=== PATIENT | female | born 1940 | race Caucasian/White ===

== ENCOUNTER 2017-12-04 08:02 | Emergency (ER) | payer OTHER, BC ==
[2017-12-04 08:17] VITALS: RESP 16
--- NOTE | 2017-12-04 09:15 | EDPHY ---
H & P Stated Complaint: R foot pain Time Seen by Provider: 12/04/17 08:57 HPI/ROS: CHIEF COMPLAINT: Atraumatic right foot and ankle pain HISTORY OF PRESENT ILLNESS: 77-year-old female generally healthy complaining of atraumatic right foot and ankle pain for the past 1 year. It is progressive. She has reproducible pain with palpation and weight-bearing. This morning she had a friend bring her to the ER and he had to assist her with her antalgic gait. She notes that the pain is reproducible with light/ superficial touch and she notes soft tissue swelling to the right calf and right ankle. No discoloration. No fever or chills. No flu-like symptoms. No coagulopathic disorder. PRIMARY CARE PROVIDER: Dr.Jillian Vee REVIEW OF SYSTEMS: A ten point review of systems was performed and is negative with the exception of the items mentioned in the HPI PAST MEDICAL & SURGICAL HISTORY: No pertinent medical or surgical history SOCIAL HISTORY: Nonsmoker. Professor Doris wallace [facility] PHYSICAL EXAM (Prior to examination, patient consented to physical exam, hands were washed and my usual and customary physical exam procedures followed) 1) GENERAL: Well-developed, well-nourished, alert and oriented. Appears to be in no acute distress. 2) HEAD: Normocephalic, atraumatic 3) HEENT: Pupils equal, round, reactive to light bilaterally. Sclera anicteric. 4) NECK: Full range of motion, no meningeal signs. 5) LUNGS: Clear auscultation bilaterally, no wheezes, no rhonchi, no retractions. 6) HEART: Regular rate and rhythm, no murmur, no heave, no gallop. 7) ABDOMEN: No guarding, no rebound, no focal tenderness, 8) MUSCULOSKELETAL: Right lower extremity: Tender to palpation right calf with no visible or palpable abnormality beyond pain. Soft compartments. Edema to the ankle no tenderness. No deformity. Normal color normal temperature to the ankle. No pain with axial loading. Foot has mild tenderness in the mid dorsal foot with normal coloration normal temperature. No crepitus. 9) BACK: No visual or palpable abnormality. 10) SKIN: No rash, no petechiae. 11) Psychiatric: Patient is oriented X 3, there is no agitation. DIFFERENTIAL DIAGNOSIS: In no particular order including but not limited to fracture, sprain, gouty arthritis, strain, DVT, arterial occlusion, septic arthritis, cellulitis, necrotizing fasciitis - Personal History Current Tetanus/Diphtheria Vaccine: No Current Tetanus Diphtheria and Acellular Pertussis (TDAP): No - Medical/Surgical History Hx Asthma: Yes Hx Chronic Respiratory Disease: No Hx Diabetes: No Hx Cardiac Disease: No Hx Renal Disease: No Hx Cirrhosis: No Hx Alcoholism: No Hx HIV/AIDS: No Hx Splenectomy or Spleen Trauma: No Other PMH: asthma, HTN, hypothyroid, thyroid ablation - Social History Smoking Status: Never smoked Constitutional: Initial Vital Signs Temperature (C) 36.6 C 12/04/17 08:13 Heart Rate 83 12/04/17 08:13 Respiratory Rate 16 12/04/17 08:13 Blood Pressure 130/71 H 12/04/17 08:13 O2 Sat (%) 95 12/04/17 08:13 O2 Delivery Mode Room Air Allergies/Adverse Reactions: No Known Allergies Allergy (Unverified 12/04/17 08:12) Home Medications: Medication Instructions Recorded Albuterol 12/04/17 Levothyroxine 12/04/17 Librax (*) 12/04/17 Lipitor 12/04/17 Medical Decision Making - Diagnostics Imaging Results: Imaging Impressions Ankle X-Ray 12/04/17 09:12 Impression: 1. No fracture or bone lesion. 2. Minimal degenerative arthropathy and chondrocalcinosis. 3. Diffuse soft tissue swelling. Findings discussed with Emergency Department physicianThelma on 2017. Extremity Venous Study 12/04/17 09:12 Impression: Negative. No deep venous thrombosis. Findings discussed with Emergency Department physicianThelma at 2017 10:05 a.m. Foot X-Ray 12/04/17 09:12 Impression: 1. No acute fracture. 2. Dislocated second metatarsophalangeal joint (possibly chronic). 3. Hallux valgus deformity and moderate osteoarthritis of the first metatarsophalangeal joint. Findings discussed with Emergency Department physicianSara on . Images reviewed myself ED Course/Re-evaluation: 9:15 a.m.: Plan will be imaging and diagnostic studies. Care of patient under supervision of secondary supervising physician Dr Lewis . 11:00 a.m.: The patient was re-evaluated with serial examinations. Discussed her imaging results showing negative DVT, no fracture on x-ray however she is noted to have a dislocation at the 2nd MTP. I discussed this with her she notes that this is more than likely been present for several years. Will not attempt reduction at this time. Did recommend follow up with Podiatry. She has no evidence of DVT on ultrasound. Doubt arterial occlusion as she has normal coloration normal temperature. Doubt septic arthritis. The specific etiology of her symptoms is not completely clear at this time. Did stress the importance of follow-up with Podiatry and her primary care provider. She feels comfortable being discharged. Recommend elevation. Usual and customary discharge precautions and instructions provided. - Data Points Laboratory Results: Laboratory Results 12/04/17 08:32 12/04/17 08:32 12/04/17 12/04/17 08:32 08:32 WBC 7.29 10^3/uL 10^3/uL (3.80-9.50) RBC 4.76 10^6/uL 10^6/uL (4.18-5.33) Hgb 14.4 g/dL g/dL (12.6-16.3) Hct 43.2 % % (38.0-47.0) MCV 90.8 fL fL (81.5-99.8) MCH 30.3 pg pg (27.9-34.1) MCHC 33.3 g/dL g/dL (32.4-36.7) RDW 13.0 % % (11.5-15.2) Plt Count 238 10^3/uL 10^3/uL (150-400) MPV 9.0 fL fL (8.7-11.7) Neut % (Auto) 77.4 % H % (39.3-74.2) Lymph % (Auto) 14.0 % L % (15.0-45.0) Charlton % (Auto) 6.6 % % (4.5-13.0) Eos % (Auto) 1.6 % % (0.6-7.6) Baso % (Auto) 0.1 % L % (0.3-1.7) Nucleat RBC Rel Count 0.0 % % (0.0-0.2) Absolute Neuts (auto) 5.64 10^3/uL 10^3/uL (1.70-6.50) Absolute Lymphs (auto) 1.02 10^3/uL 10^3/uL (1.00-3.00) Absolute Monos (auto) 0.48 10^3/uL 10^3/uL (0.30-0.80) Absolute Eos (auto) 0.12 10^3/uL 10^3/uL (0.03-0.40) Absolute Basos (auto) 0.01 10^3/uL L 10^3/uL (0.02-0.10) Absolute Nucleated RBC 0.00 10^3/uL 10^3/uL (0-0.01) Immature Gran % 0.3 % % (0.0-1.1) Immature Gran # 0.02 10^3/uL 10^3/uL (0.00-0.10) Sodium 145 mEq/L mEq/L (135-145) Potassium 4.1 mEq/L mEq/L (3.5-5.2) Chloride 109 mEq/L mEq/L (97-110) Carbon Dioxide 23 mEq/l mEq/l (22-31) Anion Gap 13 mEq/L mEq/L (8-16) BUN 10 mg/dL mg/dL (7-23) Creatinine 0.7 mg/dL mg/dL (0.6-1.0) Estimated GFR > 60 Glucose 111 mg/dL H mg/dL (70-100) Uric Acid 2.5 mg/dL mg/dL (2.5-6.8) Calcium 9.2 mg/dL mg/dL (8.5-10.4) Departure - Departure Disposition: Home, Routine, Self-Care Clinical Impression: Right foot pain Condition: Good Instructions: Arthralgia (ED) Additional Instructions: Return to the ER immediately if you experience discoloration, have worsening pain, numbness, tingling, or any other symptoms that concern you. If you received x-rays in the emergency department today, be advised, that ligamentous , tendon, muscular, and other non-bony injury cannot be fully ruled out. Referrals: Jorden Serra MD [Doctor of Podiatric Medicine] - 2-3 days, call for appt. ( Dr. Serra is a visual [employer] developer) Nelda Vee MD [Primary Care Provider] - 2-3 days, call for appt.
[2017-12-04 09:23] LABS: PLATELET COUNT 238 10^3/uL (150-400)
[2017-12-04 11:42] VITALS: BP 125/77; PULSE 88; TEMP 98.2; O2SAT 98
== END 2017-12-04 11:41 | disposition home or self-care (01) ==
DX: M79.671 Pain in right foot (principal); I10 Essential (primary) hypertension; J45.909 Unspecified asthma, uncomplicated

== ENCOUNTER → 2019-03-16 | Outpatient (CLI) | payer OTHER, BC | LOC: GIMAGING 09:05 ==